=== PATIENT | female | born 1965 | race Caucasian/White ===

== ENCOUNTER 2016-10-19 07:49 | Emergency (ER) | payer BC, OTHER ==
[2016-10-19] MEDS ORDERED: LORazepam TAB(*) 1 MG PO ONE (08:05)
[2016-10-19] MEDS ORDERED: oxyCODONE/Acetamin 5/325 MG* TAB PO ONE (08:05)
--- NOTE | 2016-10-19 08:44 | RAD ---
Indication: Pain at the dorsal left foot, medial ankle and anterior tibia after a fall Comparison: None. Technique: 4 views of the left lower leg and 3 views of the left foot were obtained Report: The visualized bones are adequately corticated and well aligned. There is no acute fracture, dislocation or other focal abnormality. The soft tissues appear grossly normal. IMPRESSION: Normal radiographs of the left lower leg and foot If the patient's symptoms persist, follow-up imaging is recommended.
[2016-10-19] MEDS ORDERED: Ketorolac INJ* 60 MG/2 ML VIAL IM ONE (09:11)
--- NOTE | 2016-10-19 09:18 | ED ---
Lower Extremity - HPI Summary HPI Summary: Pt here w/ Left foot sprain since falling down stairs this morning. Was house sitting and as she was walking down the stairs early this morning, she missed a step and rolled her ankle. Lt lateral foot is swollen and pain w/ movement. Denies numbness, tingling, weakness. Can still move toes. Waited until sun came up to call her mom who came and got her to bring her here as she was unable to bear weight. No previous injury here. - History of Current Complaint Chief Complaint: EDExtremityLower Stated Complaint: FALL Time Seen by Provider: 10/19/16 08:22 Hx Obtained From: Patient Pain Intensity: 8 - Allergies/Home Medications Allergies/Adverse Reactions: Allergies Allergy/AdvReac Type Severity Reaction Status Date / Time No Known Allergies Allergy Verified 10/19/16 07:52 PMH/Surg Hx/FS Hx/Imm Hx Previously Healthy: Yes Endocrine/Hematology History: Denies: Hx Anticoagulant Therapy, Hx Blood Disorders Neurological History: Reports: Hx Migraine - takes propranolol Psychiatric History: Reports: Hx Anxiety - prozac, Hx Depression - prozac Infectious Disease History: No Infectious Disease History: Denies: Traveled Outside the [place] in Last 30 Days - Family History Known Family History: Positive: Other - breast cancer - Social History Occupation: Employed Part-time - hotel staff Lives: With Family - mom Alcohol Use: Occasionally Alcohol Amount: H/o ETOH abuse Hx Substance Use: No Substance Use Type: Reports: None Hx Tobacco Use: No Smoking Status (MU): Never Smoked Tobacco Review of Systems Constitutional: Negative Positive: no symptoms reported Musculoskeletal: Other - see HPI Skin: Negative Neurological: Negative Positive: Anxious All Other Systems Reviewed And Are Negative: Yes Physical Exam Triage Information Reviewed: Yes Vital Signs On Initial Exam: Initial Vitals Temp Pulse Resp BP Pulse Ox 98.8 F 65 20 139/99 100 10/19/16 07:53 10/19/16 07:53 10/19/16 07:53 10/19/16 07:53 10/19/16 07:53 Vital Signs Reviewed: Yes Appearance: Positive: Well-Appearing, Well-Nourished, Pain Distress Skin: Positive: Warm, Dry - mild ecchymosis w/ edema over lateral Lt foot, distal to ankle joint Head/Face: Positive: Normal Head/Face Inspection Eyes: Positive: EOMI ENT: Positive: Hearing grossly normal Respiratory/Lung Sounds: Positive: Breath Sounds Present Cardiovascular: Positive: Pulses are Symmetrical in both Upper and Lower Extremities Musculoskeletal: Positive: Limited @ - Lt ankle, Pain @ - dorsal Lt foot and passive movement of 3rd and 4th toes -can actvely move toes but hurts - no malleoli edema and NTTP Neurological: Positive: Sensory/Motor Intact, Alert, Oriented to Person Place, Time Psychiatric: Positive: Anxious Diagnostics - Vital Signs Vital Signs Temp Pulse Resp BP Pulse Ox 10/19/16 08:27 16 10/19/16 07:53 98.8 F 65 20 139/99 100 - Laboratory Lab Statement: Any lab studies that have been ordered have been reviewed, and results considered in the medical decision making process. Re-Evaluation - Re-Evaluation First Eval Change: Unchanged - no pain relief w/ percocet and ativan - will order toradol Lower Extremity Course/Dx - Diagnoses Provider Diagnoses: Sprain of left foot Discharge - Discharge Plan Condition: Stable Disposition: HOME Prescriptions: Ibuprofen TAB* [Motrin TAB* 600 MG] 600 mg PO Q6H PRN #20 tab PRN Reason: Pain Patient Education Materials: Crutch Instructions (ED), Foot Sprain (ED) Forms: *Work Release Referrals: [facility] [Outside] Additional Instructions: Rest, ice, elevate and keep wrapped with an CINDY wrap (start at toes and wrap up foot towards heart). Take ibuprofen 600mg every 6 hours with food for pain and swelling Use crutches to avoid weight bearing Follow-up with PCP in 1-2 weeks if pain persists. Call Friday to schedule an appointment. You may follow-up with your current PCP or call for a local PCP
[2016-10-19 09:40] VITALS: BP 154/88
== END 2016-10-19 09:20 | disposition home or self-care (01) ==
LOC: ED 07:49
DX: S93.602A Unspecified sprain of left foot, initial encounter (principal); W10.9XXA Fall (on) (from) unspecified stairs and steps, initial encounter; Y92.009 Unspecified place in unspecified non-institutional (private) residence as the place of occurrence of the external cause
CPT/HCPCS: 96372; 99282; A9270-GY; J1885